=== PATIENT | female | born 1985 | race Caucasian/White ===

== ENCOUNTER 2025-10-11 22:00 | Emergency (ER) | payer MEDICAID ==
[~2025-10-11] VITALS: Ht 170.2 cm; Wt 59.0 kg
[2025-10-11 22:39] VITALS: O2SAT 98
[2025-10-11] MEDS: DEXAMETHASONE 10 MG/ML VIAL IM ONE (23:40)
[2025-10-11] MEDS: DIPHENHYDRAMINE 25MG CAPSULE PO ONE (23:40)
[2025-10-11] MEDS ORDERED: METH4TAB95 MT (23:49)
[2025-10-12 00:38] VITALS: BP 106/72; PULSE 69; RESP 18; TEMP 36.8; O2SAT 99
== END 2025-10-12 00:43 | disposition home or self-care (01) ==
LOC: ER 22:00
DX: T78.40XA Allergy, unspecified, initial encounter (principal); J45.909 Unspecified asthma, uncomplicated; R07.89 Other chest pain; Y92.89 Other specified places as the place of occurrence of the external cause
CPT/HCPCS: 99283; 81025; 96372; Q0163; J1100